=== PATIENT | female | born 1995 | race Caucasian/White ===

== ENCOUNTER 2018-12-13 10:03 | Emergency (ER) | payer BC, SELFPAY ==
[2018-12-13 10:09] VITALS: BP 146/82; PULSE 76; RESP 15; TEMP 36.7; O2SAT 99; BMI 22.8
[2018-12-13 10:30] VITALS: BP 142/90; PULSE 80; RESP 20; O2SAT 100
--- NOTE | 2018-12-13 10:36 | DI.RAD.S_ITS ---
PROCEDURE: XR CHEST 1V INDICATIONS: chest tightness, started yesterday. TECHNIQUE: One view of the chest was acquired. COMPARISON: None. FINDINGS: Surgical changes and devices: None. Lungs and pleura: Lungs are clear. No pleural effusions or pneumothorax. Mediastinum: Mediastinal contours appear normal. Heart size is normal. Bones and chest wall: No suspicious bony lesions. Overlying soft tissues appear unremarkable. IMPRESSION: Normal for age, source of current chest tightness symptoms is not seen. Dictated by: Samir Cosme M.D. on 12/13/2018 at 11:05 Approved by: Samir Cosme M.D. on 12/13/2018 at 11:06
--- NOTE | 2018-12-13 10:51 | ED.CHESTPAIN ---
HPI - Chest Pain General Chief Complaint: Chest Pain Stated Complaint: ANXIETY ATTACK NOT GOING AWAY Time Seen by Provider: 12/13/18 10:16 Source: patient and other (fiance) Mode of arrival: ambulatory Limitations: no limitations History of Present Illness HPI narrative: This is a 23-year-old female comes to the emergency department with complaint of chest tightness. Patient states she was flying here from [place] when she felt sort of tight in her chest and very short of breath. She states she sort had panic attack feelings. [place] they checked her blood pressure was noted to be 165/118. She states she has not had prior history of panic attacks, she did take labetalol for hypertension in the past and was initially 100 mg twice daily which he had increased once daily and then stopped completely. She did not do this with in conjunction with her physician but noted that her blood pressure had been low regularly. She states her dad and cousin both have his hypertension as well. Patient did not have any syncope or lightheadedness. She has felt nauseated. She has felt some tingling. It has been pretty constant has not been coming or going. She denies any palpitations or fast heart beat. She states it does seem a little worse if she eats or drinks anything.Patient denies any other past medical history she has had her wisdom teeth out but no other surgeries. She denies any allergies to medications. She does smoke, occasionally drinks alcohol, denies illicit. She denies any chance of . She denies any medications at this time. Past medical history she denies any cardiac, pulmonary or embolic history other than a grandfather who of a heart attack. Related Data Home Medications Medication Instructions Recorded Confirmed desogestrel-ethinyl estradiol 1 tab PO DAILY 12/13/18 12/13/18 [Cyred EQ] labetalol 100 mg PO BID 12/13/18 12/13/18 Previous Rx's Medication Instructions Recorded hydroxyzine HCl 25 mg PO QID PRN #10 tab 12/13/18 Allergies Allergy/AdvReac Type Severity Reaction Status Date / Time No Known Drug Allergies Allergy Verified 12/13/18 10:09 Review of Systems Review of Systems ROS Unobtainable: All systems reviewed & are unremarkable except as noted in HPI and below Constitutional Denies chills, Denies fever(s), Denies lethargy and Denies weakness ENT Ears, Nose, Mouth, and Throat: Denies neck pain Cardiovascular Reports chest pain (tightness), Denies diaphoresis, Denies syncope, Denies rapid heart rate, Denies pedal edema, Denies irregular heart rhythm, Denies lightheadedness, Denies radiating jaw, neck or arm pain, Denies palpitations, Reports dyspnea, Denies dyspnea on exertion and Denies orthopnea Respiratory Denies change in phlegm color, Denies chest congestion, Denies cough, Denies hemoptysis, Denies excessive phlegm production, Denies pain on inspiration (feels tighter though), Reports dyspnea, Denies dyspnea on exertion, Denies stridor and Denies wheezing Gastrointestinal Gastrointestinal: Denies abdominal pain, Denies change in bowel habits, Denies diarrhea, Reports nausea (not currently) and Denies vomiting Genitourinary Denies hematuria, Denies dysuria, Denies flank pain, Denies urinary incontinence and Denies urinary urgency Musculoskeletal Denies neck pain, Denies radiating pain into limb and Reports tingling (all over) Integumentary/Breasts Denies rash Neurologic Denies syncope, Reports tingling (all over) and Denies weakness Psychiatric Reports as per HPI, Reports anxiety (personal stress.), Denies depression and Denies panic attacks Endocrine Denies palpitations Allergic/Immunologic Denies wheezing PFSH Medical History Hypertension (Acute) Social History Smoking Status: Never smoker Social History details: engaged, lives in [place]. Lisa lives here with [facility] Smoking Status: Never smoker alcohol intake: current substance use type: does not use Exam Narrative Exam Narrative: GENERAL: Alert and oriented x three, Well-nourished, well-appearing female in mild distress. HEENT: Head normocephalic, atraumatic, EOMI, pupils reactive, face symmetric, moist mucous membranes NECK: Supple, full range of motion CARDIOVASCULAR: Regular rate and rhythm without murmurs, rubs or gallops. RESPIRATORY: Breath sounds equal bilaterally, no wheezes rales or rhonchi. ABDOMEN: Soft, nontender. Normoactive bowel sounds all 4 quadrants. No guarding or rebound, rigidity, no mass : No CVA tenderness EXTREMITIES: Normal range of motion, no clubbing or edema. Neurovascularly intact NEUROLOGICAL: Cranial nerves II through XII grossly intact. Moving all extremities SKIN: Warm, dry, no petechiae, no rashes or lesions. Initial Vital Signs Initial Vital Signs: Vital Signs Temperature 98.0 F 12/13/18 10:09 Pulse Rate 76 12/13/18 10:09 Respiratory Rate 15 12/13/18 10:09 Blood Pressure 146/82 H 12/13/18 10:09 Pulse Oximetry 99 12/13/18 10:09 Scores PERC Score Age greater than or equal to 50 years: No Heart rate greater than or equal to 100 bpm: No Room Air O2 Sat less than 95%: No Unilateral leg swelling: No Recent trauma or surgery: No Hemoptysis: No Prior PE or DVT: No Hormone Use: No Total PERC Score: 0 Course Orders Ordered: ED Orders 12/13/18 10:09 EKG-12 Lead Stat 12/13/18 10:20 Complete Blood Count AUTO DIFF Stat Comprehensive Metabolic Panel Stat D Dimer Stat Lipase Stat Partial Thromboplastin Time Stat Prothrombin Time INR Stat Troponin & CK Cardiac Panel Stat 12/13/18 10:36 XR chest 1V Stat 12/13/18 11:49 Urine Microscopic Stat 12/13/18 11:56 US periph venous low extrem bi Stat Discontinued Medications Aspirin (Aspirin Chew) 324 mg PO NOW ONE Stop: 12/13/18 10:37 Last Admin: 12/13/18 10:52 Dose: 324 mg Al Hydrox/Mg Hydrox/Simethicone 20 ml/ Lidocaine HCl 15 ml 0 ml PO NOW ONE Stop: 12/13/18 10:37 Last Admin: 12/13/18 10:54 Dose: 35 ml Sodium Chloride (Normal Saline 0.9%) 1,000 mls @ 1,000 mls/hr IV BOLUS ONE Stop: 12/13/18 11:35 Last Infusion: 12/13/18 12:03 Dose: 0 mls/hr Admin: 12/13/18 10:54 Dose: 1,000 mls/hr Vital Signs - 8 hr 12/13/18 10:09 12/13/18 10:30 12/13/18 11:00 Temperature 98.0 F Pulse Rate 76 80 80 Respiratory Rate 15 20 18 Blood Pressure 146/82 H Blood Pressure [Left Arm] 142/90 H 120/88 Pulse Oximetry 99 100 100 12/13/18 12:04 12/13/18 12:54 Temperature 98.6 F Pulse Rate 90 81 Respiratory Rate 16 16 Blood Pressure 114/77 Blood Pressure [Left Arm] 114/81 Pulse Oximetry 99 100 MDM - Chest Pain Lab Data Attestation: I reviewed the patient's lab results. Result diagrams: 12/13/18 10:20 12/13/18 10:20 Lab Results 12/13/18 12/13/18 12/13/18 Range/Units 10:20 10:20 10:20 WBC 5.6 (4.5-11.0) X10^3/uL RBC 4.99 (4.0-5.2) X10^6/uL Hgb 15.4 (12.0-16.0) g/dL Hct 44.0 (36-46) % MCV 88.2 (80-100) fL MCH 30.9 (26-34) PG MCHC 35.1 (30-36) % RDW 13.4 (11.6-14.8) % Plt Count 182 (150-400) X10^3/uL Neut % (Auto) 63.3 (50-75) % Lymph % (Auto) 24.9 L (25-40) % [place] % (Auto) 9.3 (3-14) % Eos % (Auto) 2.1 (2-4) % Baso % (Auto) 0.4 (0-2) % Neut # (Auto) 3600 (4299-0993) /uL Lymph # (Auto) 1400 (5605-4650) /uL [place] # (Auto) 500 (0-900) /uL Eos # (Auto) 100 (0-450) /uL Baso # (Auto) 0 (0-100) /uL PT 12.5 (10.1-12.7) SECONDS INR 1.1 (0.9-1.3) APTT 33 (26.4-36.2) SECONDS D-Dimer 470 H (<230) ng/mL Sodium 140 (137-145) mmol/L Potassium 3.6 (3.4-5.1) mmol/L Chloride 104 (98-107) mmol/L Carbon Dioxide 23 (22-32) mmol/L BUN 9 (7-17) mg/dL Creatinine 0.70 (0.52-1.04) mg/dL Estimated GFR > 60.0 (>60) mL/min BUN/Creatinine Ratio 12.9 (6-22) Glucose 97 (70-100) mg/dL Calcium 9.6 (8.4-10.2) mg/dL Total Bilirubin 1.5 H (0.2-1.3) mg/dL AST 22 (14-36) IU/L ALT 19 (9-52) IU/L Alkaline Phosphatase 53 (38-126) U/L Total Creatine Kinase 51 (30-135) U/L CK-MB (CK-2) TNP CK-MB (CK-2) Rel Index TNP Troponin I < 0.012 (0.01-0.034) ng/mL Total Protein 7.9 (6.3-8.2) g/dL Albumin 4.8 (3.5-5.0) g/dL Globulin 3.1 (1.7-4.1) g/dL Albumin/Globulin Ratio 1.5 (1.0-2.8) Lipase 160 (23-300) U/L Urine RBC (0-5/HPF) Urine WBC (0-5/HPF) Urine Bacteria (None) Ur Culture Indicated? Micro UA Comment 12/13/18 Range/Units 11:49 WBC (4.5-11.0) X10^3/uL RBC (4.0-5.2) X10^6/uL Hgb (12.0-16.0) g/dL Hct (36-46) % MCV (80-100) fL MCH (26-34) PG MCHC (30-36) % RDW (11.6-14.8) % Plt Count (150-400) X10^3/uL Neut % (Auto) (50-75) % Lymph % (Auto) (25-40) % [place] % (Auto) (3-14) % Eos % (Auto) (2-4) % Baso % (Auto) (0-2) % Neut # (Auto) (6108-5483) /uL Lymph # (Auto) (9701-4749) /uL [place] # (Auto) (0-900) /uL Eos # (Auto) (0-450) /uL Baso # (Auto) (0-100) /uL PT (10.1-12.7) SECONDS INR (0.9-1.3) APTT (26.4-36.2) SECONDS D-Dimer (<230) ng/mL Sodium (137-145) mmol/L Potassium (3.4-5.1) mmol/L Chloride (98-107) mmol/L Carbon Dioxide (22-32) mmol/L BUN (7-17) mg/dL Creatinine (0.52-1.04) mg/dL Estimated GFR (>60) mL/min BUN/Creatinine Ratio (6-22) Glucose (70-100) mg/dL Calcium (8.4-10.2) mg/dL Total Bilirubin (0.2-1.3) mg/dL AST (14-36) IU/L ALT (9-52) IU/L Alkaline Phosphatase (38-126) U/L Total Creatine Kinase (30-135) U/L CK-MB (CK-2) CK-MB (CK-2) Rel Index Troponin I (0.01-0.034) ng/mL Total Protein (6.3-8.2) g/dL Albumin (3.5-5.0) g/dL Globulin (1.7-4.1) g/dL Albumin/Globulin Ratio (1.0-2.8) Lipase (23-300) U/L Urine RBC None seen (0-5/HPF) Urine WBC None seen (0-5/HPF) Urine Bacteria None seen (None) Ur Culture Indicated? Cult not indicated Micro UA Comment Microscopic normal Point of Care Testing Test Results Negative Urine Dip Bedside Urine Glucose Negative Bedside Urine Bilirubin - Negative Bedside Urine Ketone + 15 Urine Specific [place] 1.015 Bedside Urine Occult Blood - Negative Bedside Urine pH 7.5 Bedside Urine Protein +/- 15 Bedside Urine Urobilinogen +/- 1mg Bedside Urine Nitrite - Negative Bedside Urine Leukocytes - Negative Esterase Imaging Data Chest x-ray: Radiologist's impression: [address] [address] XRay Report Signed Patient: Richard Bustillo LMR#: [id number] : 1995Acct:[id number] Age/Sex: 23 / FDate of Service: 12/13/18 Loc: ED Accession Number: [id number] Procedure: XR chest 1V Ordering Provider: Oneida Dow D.O. PROCEDURE: XR CHEST 1V INDICATIONS: chest tightness, started yesterday. TECHNIQUE: One view of the chest was acquired. COMPARISON: None. FINDINGS: Surgical changes and devices: None. Lungs and pleura: Lungs are clear. No pleural effusions or pneumothorax. Mediastinum: Mediastinal contours appear normal. Heart size is normal. Bones and chest wall: No suspicious bony lesions. Overlying soft tissues appear unremarkable. IMPRESSION: Normal for age, source of current chest tightness symptoms is not seen. Dictated by: Samir Cosme M.D. on 12/13/2018 at 11:05 Approved by: Samir Cosme M.D. on 12/13/2018 at 11:06 b/l lower extremity dvt US: Radiologist's impression: prelim-negative [place] [address] Ultrasound Report Signed Patient: Richard Bustillo LMR#: [id number] : 1995Acct:[id number] Age/Sex: 23 / FDate of Service: 12/13/18 Loc: ED Accession Number: [id number] Procedure: US periph venous low extrem bi Ordering Provider: Oneida Dow D.O. PROCEDURE: US PERIPH VENOUS LOW EXTREM BI INDICATIONS: SOB TECHNIQUE: Real-time imaging, as well as color and pulse Doppler interrogation, were performed of the deep veins of both legs from the inguinal ligament to the popliteal fossa. COMPARISON: None. FINDINGS: The deep veins are normally compressible, and free of intraluminal thrombus. Color and pulse Doppler demonstrate normal phasic intravascular flow. There is normal augmentation response to distal compression maneuver. IMPRESSION: No evidence of deep vein thrombosis within the bilateral lower extremities. Dictated by: Christ Veliz M.D. on 12/13/2018 at 11:54 Approved by: Christ Veliz M.D. on 12/13/2018 at 11:55 ECG Data Attestation: I personally reviewed and interpreted this ECG as follows: Prior ECG tracings: not available for review Interpretation: Patient has a ventricular rate of 85 a HI 138, QRS 85 and QTC of 431. Sinus rhythm no significant ST changes appreciated. MDM Narrative Medical decision making narrative: Patient states That she did have a CT of her chest in the past which was negative. She states this was when they were working her up for her hypertension. Patient's some blood pressure is slightly elevated here but not to the point that I would restart her medications. We did discuss that she needs follow up with primary care. Patient's D-dimer was still below 500 which is the typical caught off, but is close at 470. Discussed with patient about doing CT PE she is reluctant at this time. We discussed doing deep bilateral DVT ultrasound which she is agreeable these are negative. We discussed signs and symptoms and reasons to return and she does have some risk factors and that pulmonary embolism has not been completely ruled out and that this is a dangerous can be life-threatening cause. Patient is aware and comfortable. Given short term rx for hydroxyzine. Discharge Plan Departure Patient Disposition: Home Clinical Impression: Atypical chest pain Discharge Date/Time: 12/13/18 12:54 Interventions: ED Discharge Assessment Last Done: 12/13/18 12:54 Instructions: DI for Atypical Chest Pain Activity Restrictions/Additional Instructions: Follow up with your primary care provider in the next 3-5 days if symptoms are not resolving. You may take hydroxyzine 1 tablet every 8 hours as needed for anxiety. As you have elected not to do a CT scan of your chest to rule out pulmonary embolism return to the ER for fevers greater than 100.4F, worsening shortness of breath, chest pain/pressure, palpitations, fast heart beat, coughing up bloody, lightheadedness or passing out, persistent vomiting, pain or swelling in your leg or legs or other new or concerning symptoms. Prescriptions: New hydroxyzine HCl 25 mg tablet 25 mg PO QID PRN (Reason: anxiety) Qty: 10 RF: 0 No Action desogestrel-ethinyl estradiol [Cyred EQ] 0.15-0.03 mg tablet 1 tab PO DAILY RF: 0 labetalol 100 mg tablet 100 mg PO BID RF: 0
[2018-12-13] MEDS: ASPIRIN 81 MG TAB 324 MG PO (10:52)
[2018-12-13] MEDS: MAG HYDROX/ALUMINUM/SIMETH SUS 20 ML, LIDOCAINE VISCOUS 2% 15 ML PO (10:54)
[2018-12-13] MEDS: SODIUM CHLORIDE 0.9% 1,000 ML 1000 ML IV (10:54)
[2018-12-13 10:56] LABS: Add Manual Diff / Slide Review NO; Basophils Absolute Auto 0 /uL (0-100); Basophils Percent Auto 0.4 % (0-2); Eosinophils Absolute Auto 100 /uL (0-450); Eosinophils Percent Auto 2.1 % (2-4); Hemoglobin 15.4 g/dL (12.0-16.0); Lymphocytes Absolute Auto 1400 /uL (1100-4500); Lymphocytes Percent Auto 24.9 % (25-40); Mean Corpuscular HGB Conc 35.1 % (30-36); Mean Corpuscular Hemoglobin 30.9 PG (26-34); Mean Corpuscular Volume 88.2 fL (80-100); Monocytes Absolute Auto 500 /uL (0-900); Monocytes Percent Auto 9.3 % (3-14); Neutrophils Absolute Auto 3600 /uL (1500-7000); Neutrophils Percent Auto 63.3 % (50-75); Platelet Count 182 X10^3/uL (150-400); Red Blood Cell Count 4.99 X10^6/uL (4.0-5.2); Red Cell Distribution Width 13.4 % (11.6-14.8); White Blood Cell Count 5.6 X10^3/uL (4.5-11.0)
[2018-12-13 10:58] LABS: INR 1.1 (0.9-1.3); Prothrombin Time 12.5 SECONDS (10.1-12.7)
--- NOTE | 2018-12-13 10:58 | ED_ITS ---
HPI - Chest Pain General Chief Complaint: Chest Pain Stated Complaint: ANXIETY ATTACK NOT GOING AWAY Time Seen by Provider: 12/13/18 10:16 Source: patient and other (fiance) Mode of arrival: ambulatory Limitations: no limitations History of Present Illness HPI narrative: This is a 23-year-old female comes to the emergency department with complaint of chest tightness. Patient states she was flying here from [facility] [place] when she felt sort of tight in her chest and very short of breath. She states she sort had panic attack feelings. Um [place] they checked her blood pressure was noted to be 165/118. She states she has not had prior history of panic attacks, she did take labetalol for hypertension in the past and was initially 100 mg twice daily which he had increased once daily and then stopped completely. She did not do this with in conjunction with her physician but noted that her blood pressure had been low regularly. She states her dad and cousin both have his hypertension as well. Patient did not have any syncope or lightheadedness. She has felt nauseated. She has felt some tingling. It has been pretty constant has not been coming or going. She denies any palpitations or fast heart beat. She states it does seem a little worse if she eats or drinks anything.Patient denies any other past medical history she has had her wisdom teeth out but no other surgeries. She denies any allergies to medications. She does smoke, occasionally drinks alcohol, denies illicit. She denies any chance of . She denies any medications at this time. Past medical history she denies any cardiac, pulmonary or embolic history other than a grandfather who of a heart attack. Related Data Home Medications Medication Instructions Recorded Confirmed desogestrel-ethinyl estradiol 1 tab PO DAILY 12/13/18 12/13/18 [Cyred EQ] labetalol 100 mg PO BID 12/13/18 12/13/18 Previous Rx's Medication Instructions Recorded hydroxyzine HCl 25 mg PO QID PRN #10 tab 12/13/18 Allergies Allergy/AdvReac Type Severity Reaction Status Date / Time No Known Drug Allergies Allergy Verified 12/13/18 10:09 Review of Systems Review of Systems ROS Unobtainable: All systems reviewed & are unremarkable except as noted in HPI and below Constitutional Denies chills, Denies fever(s), Denies lethargy and Denies weakness ENT Ears, Nose, Mouth, and Throat: Denies neck pain Cardiovascular Reports chest pain (tightness), Denies diaphoresis, Denies syncope, Denies rapid heart rate, Denies pedal edema, Denies irregular heart rhythm, Denies lightheadedness, Denies radiating jaw, neck or arm pain, Denies palpitations, Reports dyspnea, Denies dyspnea on exertion and Denies orthopnea Respiratory Denies change in phlegm color, Denies chest congestion, Denies cough, Denies hemoptysis, Denies excessive phlegm production, Denies pain on inspiration (feels tighter though), Reports dyspnea, Denies dyspnea on exertion, Denies stri dory and Denies wheezing Gastrointestinal Gastrointestinal: Denies abdominal pain, Denies change in bowel habits, Denies diarrhea, Reports nausea (not currently) and Denies vomiting Genitourinary Denies hematuria, Denies dysuria, Denies flank pain, Denies urinary incontinence and Denies urinary urgency Musculoskeletal Denies neck pain, Denies radiating pain into limb and Reports tingling (all over) Integumentary/Breasts Denies rash Neurologic Denies syncope, Reports tingling (all over) and Denies weakness Psychiatric Reports as per HPI, Reports anxiety (personal stress.), Denies depression and Denies panic attacks Endocrine Denies palpitations Allergic/Immunologic Denies wheezing PFSH Medical History Hypertension (Acute) Social History Smoking Status: Never smoker Social History details: engaged, lives in [place]. Lisa lives here with [employer] Smoking Status: Never smoker alcohol intake: current substance use type: does not use Exam Narrative Exam Narrative: GENERAL: Alert and oriented x three, Well-nourished, well- appearing female in mild distress. HEENT: Head normocephalic, atraumatic, EOMI, pupils reactive, face symmetric, moist mucous membranes NECK: Supple, full range of motion CARDIOVASCULAR: Regular rate and rhythm without murmurs, rubs or gallops. RESPIRATORY: Breath sounds equal bilaterally, no wheezes rales or rhonchi. ABDOMEN: Soft, nontender. Normoactive bowel sounds all 4 quadrants. No guarding or rebound, rigidity, no mass : No CVA tenderness EXTREMITIES: Normal range of motion, no clubbing or edema. Neurovascularly intact NEUROLOGICAL: Cranial nerves II through XII grossly intact. Moving all extremities SKIN: Warm, dry, no petechiae, no rashes or lesions. Initial Vital Signs Initial Vital Signs: Vital Signs Temperature 98.0 F 12/13/18 10:09 Pulse Rate 76 12/13/18 10:09 Respiratory Rate 15 12/13/18 10:09 Blood Pressure 146/82 H 12/13/18 10:09 Pulse Oximetry 99 12/13/18 10:09 Scores PERC Score Age greater than or equal to 50 years: No Heart rate greater than or equal to 100 bpm: No Room Air O2 Sat less than 95%: No Unilateral leg swelling: No Recent trauma or surgery: No Hemoptysis: No Prior PE or DVT: No Hormone Use: No Total PERC Score: 0 Course Orders Ordered: ED Orders 12/13/18 10:09 EKG-12 Lead Stat 12/13/18 10:20 Complete Blood Count AUTO DIFF Stat Comprehensive Metabolic Panel Stat D Dimer Stat Lipase Stat Partial Thromboplastin Time Stat Prothrombin Time INR Stat Troponin & CK Cardiac Panel Stat 12/13/18 10:36 XR chest 1V Stat 12/13/18 11:49 Urine Microscopic Stat 12/13/18 11:56 US periph venous low extrem bi Stat Discontinued Medications Aspirin (Aspirin Chew) 324 mg PO NOW ONE Stop: 12/13/18 10:37 Last Admin: 12/13/18 10:52 Dose: 324 mg Al Hydrox/Mg Hydrox/Simethicone 20 ml/ Lidocaine HCl 15 ml 0 ml PO NOW ONE Stop: 12/13/18 10:37 Last Admin: 12/13/18 10:54 Dose: 35 ml Sodium Chloride (Normal Saline 0.9%) 1,000 mls @ 1,000 mls/hr IV BOLUS ONE Stop: 12/13/18 11:35 Last Infusion: 12/13/18 12:03 Dose: 0 mls/hr Admin: 12/13/18 10:54 Dose: 1,000 mls/hr Vital Signs - 8 hr 12/13/18 10:09 12/13/18 10:30 12/13/18 11:00 Temperature 98.0 F Pulse Rate 76 80 80 Respiratory Rate 15 20 18 Blood Pressure 146/82 H Blood Pressure [Left Arm] 142/90 H 120/88 Pulse Oximetry 99 100 100 12/13/18 12:04 12/13/18 12:54 Temperature 98.6 F Pulse Rate 90 81 Respiratory Rate 16 16 Blood Pressure 114/77 Blood Pressure [Left Arm] 114/81 Pulse Oximetry 99 100 MDM - Chest Pain Lab Data Attestation: I reviewed the patient's lab results. Result diagrams: 12/13/18 10:20 12/13/18 10:20 Lab Results 12/13/18 12/13/18 12/13/18 Range/Units 10:20 10:20 10:20 WBC 5.6 (4.5-11.0) X10^3/uL RBC 4.99 (4.0-5.2) X10^6/uL Hgb 15.4 (12.0-16.0) g/dL Hct 44.0 (36-46) % MCV 88.2 (80-100) fL MCH 30.9 (26-34) PG MCHC 35.1 (30-36) % RDW 13.4 (11.6-14.8) % Plt Count 182 (150-400) X10^3/uL Neut % (Auto) 63.3 (50-75) % Lymph % (Auto) 24.9 L (25-40) % [place] % (Auto) 9.3 (3-14) % Eos % (Auto) 2.1 (2-4) % Baso % (Auto) 0.4 (0-2) % Neut # (Auto) 3600 (6383-6795) /uL Lymph # (Auto) 1400 (2986-1398) /uL [place] # (Auto) 500 (0-900) /uL Eos # (Auto) 100 (0-450) /uL Baso # (Auto) 0 (0-100) /uL PT 12.5 (10.1-12.7) SECONDS INR 1.1 (0.9-1.3) APTT 33 (26.4-36.2) SECONDS D-Dimer 470 H (<230) ng/mL Sodium 140 (137-145) mmol/L Potassium 3.6 (3.4-5.1) mmol/L Chloride 104 (98-107) mmol/L Carbon Dioxide 23 (22-32) mmol/L BUN 9 (7-17) mg/dL Creatinine 0.70 (0.52-1.04) mg/dL Estimated GFR > 60.0 (>60) mL/min BUN/Creatinine Ratio 12.9 (6-22) Glucose 97 (70-100) mg/dL Calcium 9.6 (8.4-10.2) mg/dL Total Bilirubin 1.5 H (0.2-1.3) mg/dL AST 22 (14-36) IU/L ALT 19 (9-52) IU/L Alkaline Phosphatase 53 (38-126) U/L Total Creatine Kinase 51 (30-135) U/L CK-MB (CK-2) TNP CK-MB (CK-2) Rel Index TNP Troponin I < 0.012 (0.01-0.034) ng/mL Total Protein 7.9 (6.3-8.2) g/dL Albumin 4.8 (3.5-5.0) g/dL Globulin 3.1 (1.7-4.1) g/dL Albumin/Globulin Ratio 1.5 (1.0-2.8) Lipase 160 (23-300) U/L Urine RBC (0-5/HPF) Urine WBC (0-5/HPF) Urine Bacteria (None) Ur Culture Indicated? Micro UA Comment 12/13/18 Range/Units 11:49 WBC (4.5-11.0) X10^3/uL RBC (4.0-5.2) X10^6/uL Hgb (12.0-16.0) g/dL Hct (36-46) % MCV (80-100) fL MCH (26-34) PG MCHC (30-36) % RDW (11.6-14.8) % Plt Count (150-400) X10^3/uL Neut % (Auto) (50-75) % Lymph % (Auto) (25-40) % [place] % (Auto) (3-14) % Eos % (Auto) (2-4) % Baso % (Auto) (0-2) % Neut # (Auto) (8165-6070) /uL Lymph # (Auto) (7000-3566) /uL [place] # (Auto) (0-900) /uL Eos # (Auto) (0-450) /uL Baso # (Auto) (0-100) /uL PT (10.1-12.7) SECONDS INR (0.9-1.3) APTT (26.4-36.2) SECONDS D-Dimer (<230) ng/mL Sodium (137-145) mmol/L Potassium (3.4-5.1) mmol/L Chloride (98-107) mmol/L Carbon Dioxide (22-32) mmol/L BUN (7-17) mg/dL Creatinine (0.52-1.04) mg/dL Estimated GFR (>60) mL/min BUN/Creatinine Ratio (6-22) Glucose (70-100) mg/dL Calcium (8.4-10.2) mg/dL Total Bilirubin (0.2-1.3) mg/dL AST (14-36) IU/L ALT (9-52) IU/L Alkaline Phosphatase (38-126) U/L Total Creatine Kinase (30-135) U/L CK-MB (CK-2) CK-MB (CK-2) Rel Index Troponin I (0.01-0.034) ng/mL Total Protein (6.3-8.2) g/dL Albumin (3.5-5.0) g/dL Globulin (1.7-4.1) g/dL Albumin/Globulin Ratio (1.0-2.8) Lipase (23-300) U/L Urine RBC None seen (0-5/HPF) Urine WBC None seen (0-5/HPF) Urine Bacteria None seen (None) Ur Culture Indicated? Cult not indicated Micro UA Comment Microscopic normal Point of Care Testing Test Results Negative Urine Dip Bedside Urine Glucose Negative Bedside Urine Bilirubin - Negative Bedside Urine Ketone + 15 Urine Specific [place] 1.015 Bedside Urine Occult Blood - Negative Bedside Urine pH 7.5 Bedside Urine Protein +/- 15 Bedside Urine Urobilinogen +/- 1mg Bedside Urine Nitrite - Negative Bedside Urine Leukocytes - Negative Esterase Imaging Data Chest x-ray: Radiologist's impression: [address] [address] XRay Report Signed Patient: Richard Bustillo LMR#: [id number] : 1995Acct:[id number] Age/Sex: 23 / FDate of Service: 12/13/18 Loc: ED Accession Number: [id number] Procedure: XR chest 1V Ordering Provider: Oneida Dow D.O. PROCEDURE: XR CHEST 1V INDICATIONS: chest tightness, started yesterday. TECHNIQUE: One view of the chest was acquired. COMPARISON: None. FINDINGS: Surgical changes and devices: None. Lungs and pleura: Lungs are clear. No pleural effusions or pneumothorax. Mediastinum: Mediastinal contours appear normal. Heart size is normal. Bones and chest wall: No suspicious bony lesions. Overlying soft tissues appear unremarkable. IMPRESSION: Normal for age, source of current chest tightness symptoms is not seen. Dictated by: Samir Cosme M.D. on 12/13/2018 at 11:05 Approved by: Samir Cosme M.D. on 12/13/2018 at 11:06 b/l lower extremity dvt US: Radiologist's impression: prelim-[place] [id number] Ultrasound Report Signed Patient: Richard Bustillo LMR#: [id number] : 1995Acct:[id number] Age/Sex: 23 / FDate of Service: 12/13/18 Loc: ED Accession Number: [id number] Procedure: US periph venous low extrem bi Ordering Provider: Oneida Dow D.O. PROCEDURE: US PERIPH VENOUS LOW EXTREM BI INDICATIONS: SOB TECHNIQUE: Real-time imaging, as well as color and pulse Doppler interrogation, were performed of the deep veins of both legs from the inguinal ligament to the popliteal fossa. COMPARISON: None. FINDINGS: The deep veins are normally compressible, and free of intraluminal thrombus. Color and pulse Doppler demonstrate normal phasic intravascular flow. There is normal augmentation response to distal compression maneuver. IMPRESSION: No evidence of deep vein thrombosis within the bilateral lower extremities. Dictated by: Christ Veliz M.D. on 12/13/2018 at 11:54 Approved by: Christ Veliz M.D. on 12/13/2018 at 11:55 ECG Data Attestation: I personally reviewed and interpreted this ECG as follows: Prior ECG tracings: not available for review Interpretation: Patient has a ventricular rate of 85 a MD 138, QRS 85 and QTC of 431. Sinus rhythm no significant ST changes appreciated. MDM Narrative Medical decision making narrative: Patient states That she did have a CT of her chest in the past which was negative. She states this was when they were working her up for her hypertension. Patient's some blood pressure is slightly elevated here but not to the point that I would restart her medications. We did discuss that she needs follow up with primary care. Patient's D-dimer was still below 500 which is the typical caught off, but is close at 470. Discussed with patient about doing CT PE she is reluctant at this time. We discussed doing deep bilateral DVT ultrasound which she is agreeable these are negative. We discussed signs and symptoms and reasons to return and she does have some risk factors and that pulmonary em bolism has not been completely ruled out and that this is a dangerous can be life-threatening cause. Patient is aware and comfortable. Given short term rx for hydroxyzine. Discharge Plan Departure Patient Disposition: Home Clinical Impression: Atypical chest pain Discharge Date/Time: 12/13/18 12:54 Interventions: ED Discharge Assessment Last Done: 12/13/18 12:54 Instructions: DI for Atypical Chest Pain Activity Restrictions/Additional Instructions: Follow up with your primary care provider in the next 3-5 days if symptoms are not resolving. You may take hydroxyzine 1 tablet every 8 hours as needed for anxiety. As you have elected not to do a CT scan of your chest to rule out pulmonary embolism return to the ER for fevers greater than 100.4F, worsening shortness of breath, chest pain/pressure, palpitations, fast heart beat, coughing up bloody, lightheadedness or passing out, persistent vomiting, pain or swelling in your leg or legs or other new or concerning symptoms. Prescriptions: New hydroxyzine HCl 25 mg tablet 25 mg PO QID PRN (Reason: anxiety) Qty: 10 RF: 0 No Action desogestrel-ethinyl estradiol [Cyred EQ] 0.15-0.03 mg tablet 1 tab PO DAILY RF: 0 labetalol 100 mg tablet 100 mg PO BID RF: 0
[2018-12-13 11:00] VITALS: BP 120/88; PULSE 80; RESP 18; O2SAT 100
[2018-12-13 11:00] LABS: PTT Partial Thromboplastin Tim 33 SECONDS (26.4-36.2)
[2018-12-13 11:03] LABS: Alanine Aminotransferase 19 IU/L (9-52); Albumin 4.8 g/dL (3.5-5.0); Albumin Globulin Ratio 1.5 (1.0-2.8); Alkaline Phosphatase 53 U/L (38-126); Aspartate Aminotransferase 22 IU/L (14-36); BUN Creatinine Ratio 12.9 (6-22); Bilirubin Total 1.5 mg/dL (0.2-1.3); Blood Urea Nitrogen 9 mg/dL (7-17); Calcium 9.6 mg/dL (8.4-10.2); Carbon Dioxide 23 mmol/L (22-32); Chloride 104 mmol/L (98-107); Creatine Kinase 51 U/L (30-135); Estimated Glomerular Filt Rate > 60.0 mL/min (>60); Globulin 3.1 g/dL (1.7-4.1); Glucose 97 mg/dL (70-100); HEMOLYSIS < 15 (0-50); Lipase 160 U/L (23-300); Potassium 3.6 mmol/L (3.4-5.1); Sodium 140 mmol/L (137-145); Total Protein 7.9 g/dL (6.3-8.2)
[2018-12-13 11:10] LABS: D Dimer 470 ng/mL (<230)
[2018-12-13 11:14] LABS: Troponin I < 0.012 ng/mL (0.01-0.034)
--- NOTE | 2018-12-13 11:56 | DI.US.S_ITS ---
PROCEDURE: US PERIPH VENOUS LOW EXTREM BI INDICATIONS: SOB TECHNIQUE: Real-time imaging, as well as color and pulse Doppler interrogation, were performed of the deep veins of both legs from the inguinal ligament to the popliteal fossa. COMPARISON: None. FINDINGS: The deep veins are normally compressible, and free of intraluminal thrombus. Color and pulse Doppler demonstrate normal phasic intravascular flow. There is normal augmentation response to distal compression maneuver. IMPRESSION: No evidence of deep vein thrombosis within the bilateral lower extremities. Dictated by: Crhist Veliz M.D. on 12/13/2018 at 11:54 Approved by: Christ Veliz M.D. on 12/13/2018 at 11:55
[2018-12-13 12:02] LABS: Bacteria Urine None Seen; RBC Urine None Seen (0-5/HPF); WBC Urine None Seen (0-5/HPF)
[2018-12-13 12:04] VITALS: BP 114/81; PULSE 90; RESP 16; O2SAT 99
[2018-12-13 12:06] LABS: Culture Indicated Urine Cult Not Indicated; Urine Comments Microscopic Normal
[2018-12-13 12:54] VITALS: BP 114/77; PULSE 81; RESP 16; TEMP 37; O2SAT 100
== END 2018-12-13 12:54 | disposition home or self-care (01) ==
PROVIDERS: Emergency Provider Emergency Medicine
DX: R07.89 Other chest pain (principal)
CPT/HCPCS: 36591; 71045; 80053; 81003; 81015; 81025; 82550; 83690; 84484; 85025; 85379; 85610; 85730; 93005; 93041; 93970; 96360; 99284; 99285